=== PATIENT | male | born 1965 | race African-American/Black ===

== ENCOUNTER 2018-09-10 20:06 | Emergency (ER) | payer SELFPAY | END 2018-09-10 22:57 | disposition left against medical advice (07) | LOC: ER 20:06 | DX: R10.9 Unspecified abdominal pain (principal); R51 Headache; M54.2 Cervicalgia; Z53.21 Procedure and treatment not carried out due to patient leaving prior to being seen by health care provider ==

== ENCOUNTER 2019-01-15 22:11 | Emergency (ER) | payer MEDICAID ==
[~2019-01-15] VITALS: Ht 182.9 cm; Wt 78.0 kg
[2019-01-16] MEDS ORDERED: ONDANSETRON HCL 4MG/2ML INJ IV STA (00:05)
[2019-01-16] MEDS ORDERED: MAGNESIUM/ALUMINUM HYDROXIDE/SIMETHICONE 30ML UDC PO STA (00:05)
[2019-01-16] MEDS ORDERED: SODIUM CHLORIDE 0.9% 1,000 ML IV ONE (00:05)
[2019-01-16] MEDS ORDERED: PANTOPRAZOLE SODIUM 40 MG/VIAL IV STA (00:05)
[2019-01-16 00:43] LABS: CLARITY URINE CLEAR (CLEAR); COLOR URINE YELLOW (YELLOW); KETONES URINE TRACE (NEGATIVE); LEUKOCYTE ESTERASE URINE NEGATIVE (NEGATIVE); NITRITE URINE NEGATIVE (NEGATIVE); OCCULT BLOOD URINE NEGATIVE (NEGATIVE); PROTEIN URINE 2+ (NEGATIVE); SPECIFIC GRAVITY URINE 1.024 (1.005-1.030)
[2019-01-16 00:44] LABS: CHLORIDE 103 mEq/L (98-107)
[2019-01-16 00:48] LABS: ETHANOL BLOOD < 10 mg/dL
[2019-01-16 00:50] LABS: BASOPHILS % 1.3 % (0.0-2.0); EOSINOPHILS % 1.9 % (0.0-5.0); HEMATOCRIT. 41.5 % (42.0-52.0); HEMOGLOBIN. 13.9 g/dL (14.0-18.0); LYMPHOCYTES % 37.9 % (20.0-50.0); MEAN CORPUSCULAR HEMOGLOBIN 27.8 pg (28.0-32.0); MEAN CORPUSCULAR VOLUME 83.2 fL (80.0-94.0); MEAN PLATELET VOLUME 8.2 fl (7.4-10.4); MONOCYTES % 8.8 % (2.0-8.0); NEUTROPHILS % 50.1 % (40.0-76.0); PLATELET 325 x1000/uL (130-400); RED BLOOD CELL COUNT 4.98 mill/uL (4.7-6.1); RED CELL DISTRIBUTION WIDTH 14.1 % (11.6-14.6)
[2019-01-16] MEDS ORDERED: KETOROLAC 15MG/ML VIAL IV ONE (03:15)
[2019-01-16 03:43] VITALS: BP 135/80
== END 2019-01-16 03:54 | disposition home or self-care (01) ==
LOC: ER 22:11
DX: R10.13 Epigastric pain (principal); R11.0 Nausea; E11.9 Type 2 diabetes mellitus without complications; I10 Essential (primary) hypertension; F17.200 Nicotine dependence, unspecified, uncomplicated; Z88.0 Allergy status to penicillin
CPT/HCPCS: 36415; 74176; 80053; 81003; 83690; 85025; 96365; 96375; 99284; C9113; J1885; J2405; J7030

== ENCOUNTER 2019-02-20 03:20 | Emergency (ER) | payer MEDICAID ==
[~2019-02-20] VITALS: Ht 185.4 cm; Wt 80.0 kg
[2019-02-20] MEDS ORDERED: SODIUM CHLORIDE 0.9% 1,000 ML IV ONE ×2 (04:59→06:40)
[2019-02-20 05:21] LABS: BASOPHILS % 0.4 % (0.0-2.0); EOSINOPHILS % 5.5 % (0.0-5.0); HEMATOCRIT. 40.5 % (42.0-52.0); HEMOGLOBIN. 13.5 g/dL (14.0-18.0); LYMPHOCYTES % 39.1 % (20.0-50.0); MEAN CORPUSCULAR HEMOGLOBIN 27.5 pg (28.0-32.0); MEAN CORPUSCULAR VOLUME 82.5 fL (80.0-94.0); MEAN PLATELET VOLUME 7.6 fl (7.4-10.4); PLATELET 326 x1000/uL (130-400); RED BLOOD CELL COUNT 4.92 mill/uL (4.7-6.1); RED CELL DISTRIBUTION WIDTH 13.9 % (11.6-14.6)
[2019-02-20 05:22] LABS: CLARITY URINE CLEAR (CLEAR); COLOR URINE YELLOW (YELLOW); KETONES URINE TRACE (NEGATIVE); LEUKOCYTE ESTERASE URINE NEGATIVE (NEGATIVE); NITRITE URINE NEGATIVE (NEGATIVE); OCCULT BLOOD URINE NEGATIVE (NEGATIVE); PROTEIN URINE 1+ (NEGATIVE); SPECIFIC GRAVITY URINE 1.028 (1.005-1.030)
[2019-02-20 05:27] LABS: CHLORIDE 105 mEq/L (98-107)
[2019-02-20 05:28] LABS: INR 1.1; PROTHROMBIN TIME 10.6 sec (9.1-11.1)
[2019-02-20 05:32] LABS: *AMPHETAMINES SCREEN URINE NEGATIVE (NEGATIVE); *BARBITURATES SCREEN URINE NEGATIVE (NEGATIVE); *BENZODIAZEPINES SCREEN URINE NEGATIVE (NEGATIVE); *COCAINE SCREEN URINE NEGATIVE (NEGATIVE); ETHANOL BLOOD < 10 mg/dL; METHADONE URINE SCREEN NEGATIVE (NEGATIVE); OPIATES URINE SCREEN NEGATIVE (NEGATIVE); PHENCYCLIDINE URINE SCREEN NEGATIVE (NEGATIVE)
[2019-02-20 05:33] LABS: CANNABINOID URINE SCREEN NEGATIVE (NEGATIVE)
[2019-02-20] MEDS ORDERED: KETOROLAC 30MG/ML VIAL IV STA (06:40)
[2019-02-20 07:51] LABS: CHLORIDE 110 mEq/L (98-107); INR 1.1; PROTHROMBIN TIME 10.8 sec (9.1-11.1)
[2019-02-20 12:52] VITALS: BP 129/89
== END 2019-02-20 13:03 | disposition home or self-care (01) ==
LOC: ER 03:20
DX: K59.00 Constipation, unspecified (principal); R10.9 Unspecified abdominal pain; E11.65 Type 2 diabetes mellitus with hyperglycemia; E78.00 Pure hypercholesterolemia, unspecified; I51.9 Heart disease, unspecified; M54.2 Cervicalgia; M79.605 Pain in left leg; M79.10 Myalgia, unspecified site; F17.200 Nicotine dependence, unspecified, uncomplicated; Z98.890 Other specified postprocedural states; Z88.0 Allergy status to penicillin
CPT/HCPCS: 36415; 74176; 80053; 80305; 80320; 81003; 83605; 83690; 84484; 85025; 85610; 93005; 96361; 96374; 99284; J1885; J7030; G0480

== ENCOUNTER 2019-05-01 16:38 | Emergency (ER) | payer MEDICAID ==
[~2019-05-01] VITALS: Ht 276.9 cm; Wt 76.2 kg
[2019-05-01] MEDS ORDERED: SODIUM CHLORIDE 0.9% 1,000 ML IV ONE (17:57)
[2019-05-01 18:45] LABS: CLARITY URINE CLEAR (CLEAR); COLOR URINE YELLOW (YELLOW); KETONES URINE NEGATIVE (NEGATIVE); LEUKOCYTE ESTERASE URINE NEGATIVE (NEGATIVE); NITRITE URINE NEGATIVE (NEGATIVE); OCCULT BLOOD URINE NEGATIVE (NEGATIVE); PH URINE 6.5 (4.5-8.0); PROTEIN URINE 1+ (NEGATIVE); SPECIFIC GRAVITY URINE 1.019 (1.005-1.030)
[2019-05-01 18:51] LABS: EOSINOPHILS % 2.4 % (0.0-5.0); HEMATOCRIT. 36.8 % (42.0-52.0); HEMOGLOBIN. 12.2 g/dL (14.0-18.0); LYMPHOCYTES % 44.2 % (20.0-50.0); MEAN CORPUSCULAR HEMOGLOBIN 27.4 pg (28.0-32.0); MEAN CORPUSCULAR VOLUME 82.6 fL (80.0-94.0); MEAN PLATELET VOLUME 6.7 fl (7.4-10.4); MONOCYTES % 10.3 % (2.0-8.0); NEUTROPHILS % 42.1 % (40.0-76.0); PLATELET 313 x1000/uL (130-400); RED BLOOD CELL COUNT 4.46 mill/uL (4.7-6.1); RED CELL DISTRIBUTION WIDTH 14.3 % (11.6-14.6)
[2019-05-01 18:57] LABS: CHLORIDE 110 mEq/L (98-107)
[2019-05-01 18:59] LABS: INR 1.1; PROTHROMBIN TIME 10.9 sec (9.6-11.0)
[2019-05-01 19:00] VITALS: BP 121/80
[2019-05-02 08:47] LABS: *BARBITURATES SCREEN URINE NEGATIVE (NEGATIVE)
[2019-05-02 08:48] LABS: *AMPHETAMINES SCREEN URINE NEGATIVE (NEGATIVE); *BENZODIAZEPINES SCREEN URINE NEGATIVE (NEGATIVE); *COCAINE SCREEN URINE NEGATIVE (NEGATIVE); CANNABINOID URINE SCREEN NEGATIVE (NEGATIVE); METHADONE URINE SCREEN NEGATIVE (NEGATIVE); OPIATES URINE SCREEN NEGATIVE (NEGATIVE); PHENCYCLIDINE URINE SCREEN NEGATIVE (NEGATIVE)
== END 2019-05-01 20:36 | disposition home or self-care (01) ==
LOC: ER 16:38
DX: R51 Headache (principal); R10.84 Generalized abdominal pain; E11.9 Type 2 diabetes mellitus without complications; I10 Essential (primary) hypertension; Z88.0 Allergy status to penicillin; F17.200 Nicotine dependence, unspecified, uncomplicated; Z98.890 Other specified postprocedural states
CPT/HCPCS: 36415; 80053; 80305; 80320; 81003; 84484; 85025; 85610; 93005; 99284; J7030; Z7610; G0480

== ENCOUNTER 2020-05-15 21:30 | Emergency (ER) | payer MEDICAID ==
[~2020-05-15] VITALS: Ht 188 cm; Wt 76.0 kg
[2020-05-15 21:40] VITALS: BP 137/93
[2020-05-15] MEDS ORDERED: DICY10SO PO (21:51)
[2020-05-15] MEDS ORDERED: ONDANSETRON 4MG ODT PO STA (23:28)
[2020-05-15] MEDS ORDERED: MAGNESIUM/ALUMINUM HYDROXIDE/SIMETHICONE 30ML UDC PO ONE (23:30)
[2020-05-16 00:04] LABS: METHADONE URINE SCREEN NEGATIVE (NEGATIVE); OPIATES URINE SCREEN NEGATIVE (NEGATIVE)
[2020-05-16 00:05] LABS: *BARBITURATES SCREEN URINE PRESUMTIVE POSITIVE (NEGATIVE); *BENZODIAZEPINES SCREEN URINE NEGATIVE (NEGATIVE); *COCAINE SCREEN URINE NEGATIVE (NEGATIVE); CANNABINOID URINE SCREEN NEGATIVE (NEGATIVE); PHENCYCLIDINE URINE SCREEN NEGATIVE (NEGATIVE)
[2020-05-16 00:06] LABS: *AMPHETAMINES SCREEN URINE NEGATIVE (NEGATIVE)
[2020-05-16 00:20] LABS: EOSINOPHILS % 2.2 % (0.0-5.0); HEMATOCRIT. 37.7 % (42.0-52.0); HEMOGLOBIN. 12.9 g/dL (14.0-18.0); LYMPHOCYTES % 28.2 % (20.0-50.0); MEAN CORPUSCULAR HEMOGLOBIN 28.3 pg (28.0-32.0); MEAN CORPUSCULAR VOLUME 82.5 fL (80.0-94.0); MEAN PLATELET VOLUME 7.3 fl (7.4-10.4); MONOCYTES % 7.8 % (2.0-8.0); NEUTROPHILS % 60.8 % (40.0-76.0); PLATELET 309 x1000/uL (130-400); RED BLOOD CELL COUNT 4.57 mill/uL (4.7-6.1); RED CELL DISTRIBUTION WIDTH 14.3 % (11.6-14.6)
[2020-05-16 00:24] LABS: CHLORIDE 105 mEq/L (98-107)
[2020-05-16 00:29] LABS: ETHANOL BLOOD < 10 mg/dL
== END 2020-05-16 03:11 | disposition left against medical advice (07) ==
LOC: ER 21:30
DX: G89.29 Other chronic pain (principal); R10.13 Epigastric pain; E11.9 Type 2 diabetes mellitus without complications; I10 Essential (primary) hypertension; E78.00 Pure hypercholesterolemia, unspecified; I25.10 Atherosclerotic heart disease of native coronary artery without angina pectoris; Z88.0 Allergy status to penicillin
CPT/HCPCS: 36415; 71045; 80053; 80305; 80320; 83605; 83690; 83880; 84484; 85025; 93005; 99285; Q0162; G0480

== ENCOUNTER 2023-09-26 15:36 | Emergency (ER) | payer MEDICAID ==
[~2023-09-26] VITALS: Ht 188 cm; Wt 78.9 kg
[~2023-09-26 15:36] MED LIST: DICY10SO PO
[2023-09-26 15:54] VITALS: BP 144/90; TEMP 98.2; O2SAT 99
[2023-09-26 15:56] VITALS: PULSE 97; RESP 20
[2023-09-26] MEDS ORDERED: IBUPROFEN 600MG TABLET PO STA (19:21)
[2023-09-26] MEDS ORDERED: IBUP-2029 MT (20:30)
== END 2023-09-26 21:01 | disposition home or self-care (01) ==
LOC: ER 15:36
DX: M25.512 Pain in left shoulder (principal); R07.89 Other chest pain; E11.9 Type 2 diabetes mellitus without complications; E78.00 Pure hypercholesterolemia, unspecified; I10 Essential (primary) hypertension; Z88.0 Allergy status to penicillin
CPT/HCPCS: 71045; 73030; 93005; 99284

== ENCOUNTER 2023-10-11 14:16 | Emergency (ER) | payer MEDICAID ==
[~2023-10-11] VITALS: Ht 177.8 cm; Wt 74.0 kg
[~2023-10-11 14:16] MED LIST changes: +IBUP-2029 MT
[2023-10-11 14:26] VITALS: BP 159/102; PULSE 102; RESP 20; TEMP 98.5; O2SAT 100
[2023-10-11] MEDS ORDERED: ASPIRIN 81MG TABLET PO ONE (17:30)
[2023-10-11 18:02] LABS: BASOPHILS % 0.6 % (0.0-2.0); EOSINOPHILS % 3.7 % (0.0-5.0); HEMATOCRIT. 39.5 % (42.0-52.0); HEMOGLOBIN. 13.1 g/dL (14.0-18.0); LYMPHOCYTES % 41.3 % (20.0-50.0); MEAN CORPUSCULAR HEMOGLOBIN 28.3 pg (28.0-32.0); MEAN CORPUSCULAR HGB CONC 33.2 g/dL (31.0-37.0); MEAN CORPUSCULAR VOLUME 85.1 fL (80.0-94.0); MEAN PLATELET VOLUME 7.8 fl (7.4-10.4); MONOCYTES % 6.9 % (2.0-8.0); NEUTROPHILS % 47.5 % (40.0-76.0); PLATELET 385 x1000/uL (130-400); RED BLOOD CELL COUNT 4.64 mill/uL (4.7-6.1); RED CELL DISTRIBUTION WIDTH 14.7 % (11.6-14.6); WHITE BLOOD COUNT 8.8 x1000/uL (4.5-11.0)
[2023-10-11 18:24] LABS: ALANINE AMINOTRANSFERASE 8 IU/L (10-49); ALBUMIN 4.4 g/dL (3.2-4.8); ASPARTATE AMINOTRANSFERASE 12 IU/L (<34); BILIRUBIN TOTAL 0.2 mg/dL (0.1-1.0); CALCIUM 10.3 mg/dL (8.7-10.4); CARBON DIOXIDE 26 mEq/L (21-32); CHLORIDE 107 mEq/L (98-107); CREATININE 1.2 mg/dL (0.6-1.3); GLUCOSE 228 mg/dL (70-105); POTASSIUM 3.8 mEq/L (3.5-5.1); PROTEIN TOTAL 7.4 g/dL (6.0-8.3); SODIUM 140 mEq/L (136-145); UREA NITROGEN BLOOD 14 mg/dL (9-23)
[2023-10-11 18:32] LABS: TROPONIN I HIGH SENSITIVITY < 4 ng/L (3.0-53)
== END 2023-10-11 18:26 | disposition home or self-care (01) ==
LOC: ER 14:25
DX: R07.9 Chest pain, unspecified (principal); M75.02 Adhesive capsulitis of left shoulder; E11.9 Type 2 diabetes mellitus without complications; I25.10 Atherosclerotic heart disease of native coronary artery without angina pectoris; E78.00 Pure hypercholesterolemia, unspecified; I10 Essential (primary) hypertension; Z98.890 Other specified postprocedural states; Z90.49 Acquired absence of other specified parts of digestive tract
CPT/HCPCS: 36415; 71045; 80053; 84484; 85025; 93005; 99285

== ENCOUNTER 2025-04-17 15:36 | Emergency (ER) | payer MEDICAID ==
[~2025-04-17] VITALS: Ht 188 cm; Wt 74.0 kg
[2025-04-17 15:44] VITALS: O2SAT 100
[2025-04-17] MEDS: VANCOMYCIN 1G PREMIX 200 ML IV ONE (16:00)
[2025-04-17] MEDS: SODIUM CHLORIDE 0.9% (SEPSIS BOLUS) IV ONE (16:29)
[2025-04-17] MEDS: MORPHINE SULFATE 4 MG/ML INJ (FOR IV/IM USE) IV ONE (16:37)
[2025-04-17 16:52] LABS: BASOPHILS % 0.6 % (0.0-2.0); EOSINOPHILS % 1.2 % (0.0-5.0); HEMATOCRIT. 33.6 % (42.0-52.0); HEMOGLOBIN. 11.1 g/dL (14.0-18.0); LYMPHOCYTES % 13.6 % (20.0-50.0); MEAN CORPUSCULAR HEMOGLOBIN 27.5 pg (28.0-32.0); MEAN CORPUSCULAR HGB CONC 33.2 g/dL (31.0-37.0); MEAN CORPUSCULAR VOLUME 82.9 fL (80.0-94.0); MEAN PLATELET VOLUME 6.9 fl (7.4-10.4); MONOCYTES % 6.8 % (2.0-8.0); NEUTROPHILS % 77.8 % (40.0-76.0); PLATELET 491 x1000/uL (130-400); RED BLOOD CELL COUNT 4.05 mill/uL (4.7-6.1); RED CELL DISTRIBUTION WIDTH 15.1 % (11.6-14.6); WHITE BLOOD COUNT 14.4 x1000/uL (4.5-11.0)
[2025-04-17 16:59] LABS: CHLORIDE 104 mEq/L (98-107); POTASSIUM 4.3 mEq/L (3.5-5.1); SODIUM 137 mEq/L (136-145)
[2025-04-17 17:00] LABS: CALCIUM 9.5 mg/dL (8.7-10.4); CARBON DIOXIDE 25 mEq/L (21-32)
[2025-04-17 17:02] LABS: INR 1.1; PROTHROMBIN TIME 11.4 sec (9.6-11.0)
[2025-04-17 17:05] LABS: CREATININE 1.4 mg/dL (0.6-1.3); GLUCOSE 306 mg/dL (70-105)
[2025-04-17 17:06] LABS: UREA NITROGEN BLOOD 12 mg/dL (9-23)
[2025-04-17 17:07] LABS: ALANINE AMINOTRANSFERASE 18 IU/L (10-49); ASPARTATE AMINOTRANSFERASE 10 IU/L (<34); BILIRUBIN DIRECT < 0.1 mg/dL (<=3.0)
[2025-04-17 17:08] LABS: BILIRUBIN TOTAL 0.2 mg/dL (0.1-1.0); PROTEIN TOTAL 7.9 g/dL (6.0-8.3)
[2025-04-17 17:24] LABS: TROPONIN I HIGH SENSITIVITY < 4 ng/L (3.0-53)
[2025-04-17 17:26] LABS: LACTIC ACID 2.2 mmol/L (0.4-2.0)
[2025-04-17 17:46] LABS: BETA HYDROXYBUTYRATE 0.1 mMol/L (0.0-0.3)
[2025-04-17 18:15] VITALS: BP 152/91; PULSE 108; RESP 17; TEMP 36.9; O2SAT 100
[2025-04-17 18:42] LABS: CLARITY URINE CLEAR (CLEAR); GLUCOSE URINE 3+ (NEGATIVE); KETONES URINE NEGATIVE (NEGATIVE); LEUKOCYTE ESTERASE URINE NEGATIVE (NEGATIVE); NITRITE URINE NEGATIVE (NEGATIVE); OCCULT BLOOD URINE NEGATIVE (NEGATIVE); PH URINE 5.5 (4.5-8.0); PROTEIN URINE 2+ (NEGATIVE); UROBILINOGEN URINE 0.2 E.U./dL (0.2-1.0)
[2025-04-17] MEDS ORDERED: ONDANSETRON HCL 4MG/2ML INJ IV PRN (18:45)
[2025-04-17] MEDS ORDERED: ACETAMINOPHEN 325MG TABLET PO PRN (18:45)
[2025-04-17 18:57] LABS: COLOR URINE STRAW (YELLOW)
[2025-04-17 18:58] LABS: BACTERIA URINE NONE SEEN; HYALINE CASTS URINE 0-5 /lpf; RBC URINE NONE SEEN /hpf (0-2); SQUAMOUS EPITHELIAL CELL URINE NONE SEEN /lpf (RARE/1+); WBC URINE 0-2 /hpf (0-2)
[2025-04-17] MEDS ORDERED: CLINDAMYCIN 600MG PREMIX 50 ML IV SCH (19:00)
[2025-04-17] MEDS ORDERED: DEXTROSE 50% WATER 50ML SYRINGE IV PRN (19:00)
[2025-04-17] MEDS ORDERED: VANCOMYCIN 750MG PREMIX 150 ML IV NR (20:00)
[2025-04-17] MEDS ORDERED: MAGNESIUM 1 G PREMIX 100 ML IV SCH (20:00)
[2025-04-17] MEDS ORDERED: BLOOD SUGAR DIAGNOSTIC STRIP TEST SCH (21:00)
[2025-04-17] MEDS ORDERED: INSULIN LISPRO 100 UNITS/ML SUBCUT SCH (21:00)
[2025-04-18] MEDS ORDERED: VANCOMYCIN 750MG PREMIX 150 ML IV SCH (06:00)
[2025-04-18] MEDS ORDERED: ENOXAPARIN 40MG/0.4ML SYR SUBCUT SCH (09:00)
[2025-04-18] MEDS ORDERED: PANTOPRAZOLE SODIUM 40 MG/VIAL IV SCH (09:00)
== END 2025-04-17 20:03 | disposition short-term general hospital (02) ==
LOC: ER 15:36
DX: A41.9 Sepsis, unspecified organism (principal); R65.20 Severe sepsis without septic shock; I25.10 Atherosclerotic heart disease of native coronary artery without angina pectoris; E83.42 Hypomagnesemia; E11.52 Type 2 diabetes mellitus with diabetic peripheral angiopathy with gangrene; F17.210 Nicotine dependence, cigarettes, uncomplicated; E78.00 Pure hypercholesterolemia, unspecified; I10 Essential (primary) hypertension; Z79.899 Other long term (current) drug therapy; Z90.49 Acquired absence of other specified parts of digestive tract; Z98.890 Other specified postprocedural states; Z88.0 Allergy status to penicillin
CPT/HCPCS: 80076; 80048; 81003; 82010; 82962; 83605; 83735; 83930; 85025; 85610; 86850; 86900; 86901; 87040; 87086; 84484; 36415; 84145; 73620; 93005; 96365; 96375; 99291; J3370; J2270; J7030; Z7610 ×2

== ENCOUNTER 2025-10-11 22:56 | Emergency (ER) | payer MEDICAID ==
[~2025-10-11] VITALS: Ht 188 cm; Wt 78.0 kg
[~2025-10-11 22:56] MED LIST changes: +HYDR-4009 MT; +IBUP-1455 MT; -IBUP-2029 MT; +INSU100I28 SQ; +METF-1149 PO
[2025-10-11 23:01] VITALS: O2SAT 100
[2025-10-12] MEDS: KETOROLAC 15MG/ML VIAL IM ONE (01:15)
[2025-10-12] MEDS: MORPHINE SULFATE 4 MG/ML INJ (FOR IV/IM USE) IM ONE (01:22)
[2025-10-12] MEDS ORDERED: NAPR-1176 MT (02:04)
[2025-10-12] MEDS ORDERED: NAPR-1495 MT (02:04)
[2025-10-12 02:29] VITALS: BP 183/107; PULSE 104; RESP 16; TEMP 36.8; O2SAT 100
== END 2025-10-12 02:30 | disposition home or self-care (01) ==
LOC: ER 22:56
DX: G89.18 Other acute postprocedural pain (principal); E11.9 Type 2 diabetes mellitus without complications; E78.00 Pure hypercholesterolemia, unspecified; I10 Essential (primary) hypertension; Z90.49 Acquired absence of other specified parts of digestive tract; Z88.0 Allergy status to penicillin; Z99.3 Dependence on wheelchair
CPT/HCPCS: 99283; 96372; J2270